=== PATIENT | female | born 1965 | race Caucasian/White ===

== ENCOUNTER 2019-07-18 10:05 | Emergency (ER) | payer BC ==
[~2019-07-18] VITALS: Ht 152.4 cm; Wt 72.7 kg
[2019-07-18 10:09] VITALS: TEMP 97.7
[2019-07-18 10:42] LABS: INR 0.9 (0.8-3.0); PROTHROMBIN TIME 10.1 SECONDS (9.7-12.8)
[2019-07-18 10:43] LABS: BASO # 0.1 (0.0-0.2); BASO % 1.1 % (0.0-2.0); EOS # 0.2 (0.0-0.7); EOS % 2.6 % (0-4.0); GRAN % 50.2 % (42.2-75.2); HEMATOCRIT 43.6 % (37.0-47.0); HEMOGLOBIN 14.5 g/dl (12.5-16.0); LYMPH % 37.5 % (20.0-51.0); MEAN CELL VOLUME 88 fl (80.0-100.0); MEAN CORPUSCULAR HEMOGLOBIN 29 pg (27.0-31.0); MEAN CORPUSCULAR HGB CONC 33 g/dl (33.0-37.0); MEAN PLATELET VOLUME 8.9 fl (7.4-10.4); MONO # 0.7 (0.1-0.6); MONO % 8.2 % (1.7-9.3); PLATELET COUNT 259 K/mm3 (130-400); RED BLOOD COUNT 4.94 M/mm3 (4.10-5.30); REDCELL DISTRIBUTION WIDTH-CV 12.6 % (11.5-14.5)
[2019-07-18 10:45] LABS: PARTIAL THROMBOPLASTIN TIME 28.6 SECONDS (26.0-37.0)
[2019-07-18 10:54] LABS: ALANINE AMINOTRANSFERASE 32 U/L (9-52); ALBUMIN 3.8 gm/dL (3.5-5.0); ALKALINE PHOSPHATASE 57 U/L (50-136); ANION GAP 8 mmol/L (7-16); AST,SGOT 32 U/L (15-37); BILIRUBIN,TOTAL 0.6 mg/dL (0.0-1.0); BLOOD UREA NITROGEN 13 mg/dL (7-17); CALCIUM 8.6 mg/dL (8.4-10.2); CARBON DIOXIDE 27 mmol/L (22-30); CHLORIDE 106 mmol/L (98-107); CREATININE, serum 0.92 (0.52-1.25); GLUCOSE 87 mg/dL (74-106); POTASSIUM 4.2 mmol/L (3.4-5.0); SODIUM 141 mmol/L (137-145); TOTAL PROTEIN 6.2 gm/dL (6.4-8.2)
[2019-07-18 11:08] LABS: TROPONIN-I < 0.012 ng/mL (0.000-0.035)
[2019-07-18 11:27] LABS: COLLECTION METHOD CLEAN CATCH
[2019-07-18 11:36] LABS: PH 7 (5-8); SQUAMOUS EPITHELIAL 0-2 /hpf; URINE APPEARANCE Clear; URINE BACTERIA None Seen /hpf; URINE BILIRUBIN Negative (NEGATIVE); URINE BLOOD Negative (NEGATIVE); URINE COLOR Yellow; URINE GLUCOSE Negative (NEGATIVE); URINE KETONE Negative (NEGATIVE); URINE LEUKOCYTE ESTERASE Negative (NEGATIVE); URINE NITRATE Negative (NEGATIVE); URINE PROTEIN(semi-quant) Negative (NEGATIVE); URINE RBC 0-2 /hpf; URINE UROBILINOGEN Negative (NEGATIVE)
[2019-07-18 14:15] VITALS: BP 106/68; PULSE 66
== END 2019-07-18 14:20 | disposition home or self-care (01) ==
LOC: COL.ER 10:05
PROVIDERS: Family Medicine
DX: R07.89 Other chest pain (principal); E78.5 Hyperlipidemia, unspecified; F41.9 Anxiety disorder, unspecified; I10 Essential (primary) hypertension
CPT/HCPCS: J2060

== ENCOUNTER → 2019-11-24 | Outpatient (CLI) | payer BC | LOC: MC.RAD 16:44 | DX: Z12.31 Encounter for screening mammogram for malignant neoplasm of breast (principal); Z98.890 Other specified postprocedural states; Z90.13 Acquired absence of bilateral breasts and nipples ==

== ENCOUNTER 2020-01-20 09:04 | Day surgery (SDC) | payer BC ==
[~2020-01-20] VITALS: Ht 149.9 cm; Wt 76.2 kg
[2020-01-20] MEDS ORDERED: CYMBALTA 60MG60 MG PO (09:34)
[2020-01-20] MEDS ORDERED: PROTONIX 40MG T40 MG PO (09:35)
[2020-01-20] MEDS ORDERED: INDERAL 20MG20 MG PO (09:35)
[2020-01-20] MEDS ORDERED: LIPITOR 40MG TA40 MG PO (09:35)
[2020-01-20] MEDS ORDERED: SYNTHROID0.05 MG/TA PO (09:36)
[2020-01-20] MEDS ORDERED: ZANAFLEX CAPSULE4 MG PO (09:36)
[2020-01-20] MEDS ORDERED: MOBIC 7.5MG7.5 MG PO (09:36)
[2020-01-20] MEDS ORDERED: BENTYL 20MG20 MG/TAB PO (09:37)
[2020-01-20] MEDS ORDERED: ADIPEX-P37.5 MG PO (09:37)
[2020-01-20] MEDS ORDERED: DESYREL 100MG100 MG PO (09:37)
[2020-01-20] MEDS ORDERED: FLOVENT DI50 MCG/Act IH (09:38)
[2020-01-20] MEDS ORDERED: FLONASE NASAL S16 GM NS (09:38)
[2020-01-20] MEDS ORDERED: PROAIR HFA0.09 MG/AC IH (09:38)
[2020-01-20 09:39] VITALS: BP 144/91; PULSE 83; TEMP 97.8
[2020-01-20] MEDS ORDERED: KLONOPIN 0.5MG0.5 MG PO (09:39)
[2020-01-20 11:05] VITALS: BP 118/78; PULSE 81; TEMP 97.8
--- NOTE | 2020-01-20 11:05 | NUR ---
The patient arrived back to [facility] from the endoscopy suite at this time. The patient appears alert and oriented and ambulated from the cart to recliner in her room with the stand by assistance of one and appeared to tolerate the activity well. Post procedure vital signs were started at this time. Call light is within reach. Will continue to monitor the patient.
[2020-01-20 11:20] VITALS: BP 109/74; PULSE 80
--- NOTE | 2020-01-20 11:20 | NUR ---
The patient was given some orange juice and a muffin and appeared to tolerate both well. Vital signs appear stable. Will continue to monitor the patient.
--- NOTE | 2020-01-20 11:35 | NUR ---
The patient appears to be resting quietly with her eyes closed at this time. Post procedure vital signs appear stable. Call light is within reach. Will continue to monitor the patient.
[2020-01-20 11:36] VITALS: BP 124/76; PULSE 74
[2020-01-20 11:50] VITALS: BP 131/85; PULSE 73
--- NOTE | 2020-01-20 11:51 | NUR ---
The patient continues to rest quietly with her eyes closed at this time. Vital signs appear stable. Call light is within reach. Will continue to monitor the patient.
--- NOTE | 2020-01-20 12:02 | NUR ---
Dr. Hansen is at the patient's bedside to discuss the findings of the procedure with her.
--- NOTE | 2020-01-20 12:02 | NUR ---
Discharge instructions were reviewed with the patient at this time. She verbalized understanding and has no questions for the nurse at this time. The patient's IV to her right hand was removed and a pressure dressing was applied to the site. The nurse instructed the patient to get dressed and notify the staff when she is ready to be escorted out. The patient's daughter was called to pick her up.
--- NOTE | 2020-01-20 12:12 | NUR ---
The patient was escorted out via wheelchair to a private vehicle by PIETER Garcia. The patient's belongings and discharge paperwork were sent with her. The patient's daughter is present to drive her home.
== END 2020-01-20 12:12 | disposition home or self-care (01) ==
LOC: SDCO 09:04
DX: K57.30 Diverticulosis of large intestine without perforation or abscess without bleeding (principal); K64.0 First degree hemorrhoids; K90.89 Other intestinal malabsorption; Z79.899 Other long term (current) drug therapy; E07.9 Disorder of thyroid, unspecified; I10 Essential (primary) hypertension; E78.00 Pure hypercholesterolemia, unspecified; F41.9 Anxiety disorder, unspecified; F32.9 Major depressive disorder, single episode, unspecified
CPT/HCPCS: J2250; J3010; J7030

== ENCOUNTER → 2020-05-01 | Outpatient (CLI) | payer BC ==
[~2020-05-01] MED LIST: ADIPEX-P37.5 MG PO; BENTYL 20MG20 MG/TAB PO; CYMBALTA 60MG60 MG PO; DESYREL 100MG100 MG PO; FLONASE NASAL S16 GM NS; FLOVENT DI50 MCG/Act IH; INDERAL 20MG20 MG PO; KLONOPIN 0.5MG0.5 MG PO; LIPITOR 40MG TA40 MG PO; MOBIC 7.5MG7.5 MG PO; PROAIR HFA0.09 MG/AC IH; PROTONIX 40MG T40 MG PO; SYNTHROID0.05 MG/TA PO; ZANAFLEX CAPSULE4 MG PO
== END ==
LOC: MHCPAIN 13:04
DX: M47.817 Spondylosis without myelopathy or radiculopathy, lumbosacral region (principal); M54.5 Low back pain; M53.3 Sacrococcygeal disorders, not elsewhere classified; G89.29 Other chronic pain
CPT/HCPCS: G0463

== ENCOUNTER 2020-10-05 13:26 | Day surgery (SDC) | payer BC ==
[~2020-10-05] VITALS: Ht 152.4 cm; Wt 75.6 kg
[2020-10-05] MEDS ORDERED: MOBIC15 MG PO (13:45)
[2020-10-05] MEDS ORDERED: ZANAFLEX2 MG PO (13:46)
[2020-10-05] MEDS ORDERED: ZYRTEC 10MG10 MG PO (13:47)
[2020-10-05] MEDS ORDERED: ASTEPRO205.5 MCG/ NS (13:49)
[2020-10-05] MEDS ORDERED: BETAMETHASONE D0.053 TP (13:50)
[2020-10-05] MEDS ORDERED: CUTIVATE15GMOINT TOP (13:51)
[2020-10-05 14:01] VITALS: BP 129/73; PULSE 75; TEMP 98.1
[2020-10-05 16:10] VITALS: BP 106/66; PULSE 94; TEMP 97.4
--- NOTE | 2020-10-05 16:10 | NUR ---
Patient arrives to [facility] post-op via cart, accompanied by Linus Tamayo CRNA and Pat STAPLETON. Dr. Ann is at the bedside as well. Dr. Ann places a post-op shoe over her dry dressing. She states her foot is "numb" but she is able to move her toes and denies any pain. Dr. Ann discusses discharge instructions with her and supplies his cell phone number for questions over the weekend.
[2020-10-05 16:25] VITALS: BP 138/77; PULSE 70
--- NOTE | 2020-10-05 16:25 | NUR ---
Patient is sipping water, eating crackers. Tolerating PO well. She denies pain, nausea, or need at this time. VSS on room air.
[2020-10-05 16:40] VITALS: BP 125/69; PULSE 69
--- NOTE | 2020-10-05 17:14 | NUR ---
Patient has met discharge criteria. Discharge instructions are discussed with the patient. She denies any questions and verbalizes understanding. PIV is removed with catheter intact and hemostasis achieved. Staff assists her to change to her clothing. She is escorted to the exit via wheelchair. Her daughter mets us with private vehicle and drives patient home at [id number].
== END 2020-10-05 17:14 | disposition home or self-care (01) ==
LOC: SDCO 13:26
DX: M20.12 Hallux valgus (acquired), left foot (principal); M21.612 Bunion of left foot; E78.5 Hyperlipidemia, unspecified; I10 Essential (primary) hypertension; E03.9 Hypothyroidism, unspecified; M19.90 Unspecified osteoarthritis, unspecified site; F41.9 Anxiety disorder, unspecified; Z20.828 Contact with and (suspected) exposure to other viral communicable diseases; K21.9 Gastro-esophageal reflux disease without esophagitis; J45.909 Unspecified asthma, uncomplicated; K58.2 Mixed irritable bowel syndrome; G47.00 Insomnia, unspecified; G47.33 Obstructive sleep apnea (adult) (pediatric); M54.5 Low back pain; J30.2 Other seasonal allergic rhinitis; F32.9 Major depressive disorder, single episode, unspecified; E66.9 Obesity, unspecified; E55.9 Vitamin D deficiency, unspecified; Z68.33 Body mass index [BMI] 33.0-33.9, adult; Z79.899 Other long term (current) drug therapy; Z79.890 Hormone replacement therapy
CPT/HCPCS: J0690; J1885; J2250; J2704; J3010; J7120